=== PATIENT | male | born 1930 | race Native Hawaiian/Other Pacific Islander ===

== ENCOUNTER 2017-08-28 15:47 | Emergency (ER) | payer MEDICARE, OTHER ==
[~2017-08-28] VITALS: Ht 167.6 cm; Wt 77.3 kg
[~2017-08-28 15:47] MED LIST: ALBU8.5H8 IH; AMLO-511 PO; CALC600T2 PO; CARV6 PO; DUTA.5 PO; DUTA1CPM PO; FAMO20 PO; HYDR-2924 PO; MONT10TA21 PO; SIMV20TA6 PO; TRIA10PO3 MC
[2017-08-28] MEDS ORDERED: LEVO2.5S4 PO (16:08)
[2017-08-28] MEDS ORDERED: AZEL137S8 NASAL (16:08)
[2017-08-28] MEDS ORDERED: CYAN500 PO (16:08)
[2017-08-28] MEDS ORDERED: PANT40TA25 PO (16:08)
[2017-08-28] MEDS ORDERED: FLUT1BLS IH (16:08)
[2017-08-28] MEDS ORDERED: OMEG-135 PO (16:08)
[2017-08-28] MEDS ORDERED: NACL1 PO (16:08)
[2017-08-28] MEDS ORDERED: MULT-462 PO (16:08)
[2017-08-28] MEDS ORDERED: FERR-89 PO (16:10)
[2017-08-28] MEDS ORDERED: BECLNS NASAL (16:10)
[2017-08-28] MEDS ORDERED: LOSA50TA37 PO (16:10)
[2017-08-28 17:10] LABS: HEMATOCRIT 29.9 % (41-53); HEMOGLOBIN 10.2 g/dL (13.5-17.5); MEAN CORPUSCULAR HEMOGLOBIN 33.5 pg (26.0-34.0); MEAN CORPUSCULAR HGB CONC 34.1 G/dL (31.0-37.0); MEAN CORPUSCULAR VOLUME 98 fL (80-100); PLATELET COUNT (AUTO) 260 K/uL (150-450); RED BLOOD CELL COUNT(AUTO) 3.05 MIL/uL (4.50-5.90); RED CELL DISTRIBUTION WIDTH 15.8 % (11.5-14.5); WHITE BLOOD COUNT (AUTO) 7.2 K/uL (4.5-11.0)
[2017-08-28 17:21] LABS: CALCIUM, TOTAL 8.4 mg/dL (8.8-10.5); CREATININE 1.26 mg/dL (0.60-1.30); POTASSIUM 4.1 mmol/L (3.5-5.1)
[2017-08-28 17:26] LABS: BILIRUBIN,TOTAL 0.3 mg/dL (0.1-1.0); TOTAL PROTEIN, SERUM 5.9 g/dL (6.4-8.2)
[2017-08-28 17:59] LABS: EOSINOPHILS % (MANUAL) 3 % (1-6); LYMPHOCYTES % (MANUAL) 18 % (22-44); TOTAL CELLS COUNTED 100
[2017-08-28 21:16] VITALS: BP 172/77
== END 2017-08-28 21:38 | disposition home or self-care (01) ==
LOC: EMS 15:49
DX: M79.89 Other specified soft tissue disorders (principal); I10 Essential (primary) hypertension; J45.909 Unspecified asthma, uncomplicated; J44.9 Chronic obstructive pulmonary disease, unspecified; E78.00 Pure hypercholesterolemia, unspecified; Z91.012 Allergy to eggs; Z91.013 Allergy to seafood
CPT/HCPCS: 85007; 93005; 93970; 99285

== ENCOUNTER → 2017-10-05 | Outpatient (CLI) | payer MEDICARE, OTHER ==
[~2017-10-05] MED LIST changes: -ALBU8.5H8 IH; +AZEL137S8 NASAL; +BECLNS NASAL; -CARV6 PO; +CYAN500 PO; -DUTA.5 PO; +FERR-89 PO; +FLUT1BLS IH; +LEVO2.5S4 PO; +LOSA50TA37 PO; +MULT-462 PO; +NACL1 PO; +OMEG-135 PO; +PANT40TA25 PO; -TRIA10PO3 MC
== END | disposition home or self-care (01) ==
LOC: RADPV 09:47
PROVIDERS: ATTEND Internal Medicine Pulmonary Disease
DX: M77.32 Calcaneal spur, left foot (principal); M77.8 Other enthesopathies, not elsewhere classified

== ENCOUNTER 2018-11-14 14:44 | Emergency (ER) | payer MEDICARE, OTHER ==
[~2018-11-14] VITALS: Ht 165.1 cm; Wt 80.0 kg
[~2018-11-14 14:44] MED LIST changes: -LOSA50TA37 PO; +LOSA50TA64 PO
[2018-11-14] MEDS ORDERED: OMEP20 PO (15:05)
[2018-11-14] MEDS ORDERED: ALBU8.5H8 IH (15:05)
[2018-11-14] MEDS ORDERED: BUDE10.2 IH (15:05)
[2018-11-14] MEDS ORDERED: FLUT16H NASAL (15:05)
[2018-11-14] MEDS ORDERED: ACETAMINOPHEN 500 MG TABLET PO ONE (17:30)
[2018-11-14] MEDS ORDERED: PERTUSS(ACELL),DIPH,TET VAC/PF 0.5 ML VIAL IM ONE (17:30)
[2018-11-14 19:01] VITALS: BP 133/71
== END 2018-11-14 19:11 | disposition home or self-care (01) ==
LOC: EMS 14:45
DX: S60.031A Contusion of right middle finger without damage to nail, initial encounter (principal); J45.909 Unspecified asthma, uncomplicated; E78.00 Pure hypercholesterolemia, unspecified; Z79.899 Other long term (current) drug therapy; Z91.012 Allergy to eggs; Z91.013 Allergy to seafood; W23.0XXA Caught, crushed, jammed, or pinched between moving objects, initial encounter; Y93.89 Activity, other specified; Y92.89 Other specified places as the place of occurrence of the external cause; Y99.8 Other external cause status
CPT/HCPCS: 90471; 90715

== ENCOUNTER 2019-01-23 10:02 | Emergency (ER) | payer MEDICARE, OTHER ==
[~2019-01-23] VITALS: Ht 165.1 cm; Wt 80.0 kg
[~2019-01-23 10:02] MED LIST changes: +ALBU8.5H8 IH; -AMLO-511 PO; -BECLNS NASAL; +BUDE10.2 IH; -CYAN500 PO; -FAMO20 PO; +FLUT16H NASAL; -FLUT1BLS IH; -LEVO2.5S4 PO; -MULT-462 PO; -NACL1 PO; -OMEG-135 PO; +OMEP20 PO; -PANT40TA25 PO
[2019-01-23] MEDS ORDERED: KETOROLAC TROMETHAMINE 30 MG/ML VIAL IM ONE (11:45)
[2019-01-23 11:52] LABS: BASOPHILS % (AUTO) 0.6 % (0.0-2.0); EOSINOPHILS % (AUTO) 4.8 % (1.0-6.0); HEMATOCRIT 34.1 % (41-53); HEMOGLOBIN 11.4 g/dL (13.5-17.5); LYMPHOCYTES # (AUTO) 1.2 K/uL (1.0-4.8); LYMPHOCYTES % (AUTO) 27.6 % (22.0-44.0); MEAN CORPUSCULAR HEMOGLOBIN 34.3 pg (26.0-34.0); MEAN CORPUSCULAR HGB CONC 33.6 G/dL (31.0-37.0); MEAN CORPUSCULAR VOLUME 102 fL (80-100); MONOCYTES # (AUTO) 0.7 K/uL (0.1-1.0); MONOCYTES % (AUTO) 15.3 % (2.0-9.0); NEUTROPHILS # (AUTO) 2.3 K/uL (1.8-7.7); NEUTROPHILS % (AUTO) 51.7 % (40.0-70.0); PLATELET COUNT (AUTO) 203 K/uL (150-450); RED BLOOD CELL COUNT(AUTO) 3.33 MIL/uL (4.50-5.90); RED CELL DISTRIBUTION WIDTH 13.1 % (11.5-14.5)
[2019-01-23 12:04] LABS: CALCIUM, TOTAL 8.1 mg/dL (8.8-10.5); CREATININE 1.84 mg/dL (0.60-1.30); POTASSIUM 4.1 mmol/L (3.5-5.1)
[2019-01-23 12:14] LABS: ALBUMIN 3.3 g/dL (3.4-5.0); BILIRUBIN,TOTAL 0.4 mg/dL (0.1-1.0); TOTAL PROTEIN, SERUM 6.8 g/dL (6.4-8.2)
[2019-01-23 13:44] VITALS: BP 148/77
== END 2019-01-23 13:57 | disposition home or self-care (01) ==
LOC: EMS 10:04
DX: M75.91 Shoulder lesion, unspecified, right shoulder (principal); N19 Unspecified kidney failure; R19.7 Diarrhea, unspecified; E78.00 Pure hypercholesterolemia, unspecified; J45.909 Unspecified asthma, uncomplicated; Z90.49 Acquired absence of other specified parts of digestive tract; Z91.013 Allergy to seafood; Z91.012 Allergy to eggs; Z79.899 Other long term (current) drug therapy
CPT/HCPCS: 36415; 80053; 85025; 96372; 99283; J1885

== ENCOUNTER 2021-07-22 11:03 | Inpatient (IN) | payer OTHER ==
[~2021-07-22] VITALS: Ht 165.1 cm; Wt 77.0 kg
[~2021-07-22 11:03] MED LIST changes: -HYDR-2924 PO; +HYDR50TA36 PO; +LOSA50TA37 PO; -LOSA50TA64 PO; +MONT-35 PO; -MONT10TA21 PO; +SIMV-43 PO; -SIMV20TA6 PO
[2021-07-22] MEDS ORDERED: ASPIRIN 81 MG CHEWABLE TABLET PO ONE (12:00)
[2021-07-22] MEDS ORDERED: NITROGLYCERIN 2% (1 GM=INCH) PACKET TP ONE (12:00)
[2021-07-22] MEDS ORDERED: PANT20TA18 PO (12:09)
[2021-07-22] MEDS ORDERED: FLUT1BLS15 IH (12:09)
[2021-07-22] MEDS ORDERED: DUTA0.5C37 PO (12:09)
[2021-07-22] MEDS ORDERED: CARV12.530 PO (12:09)
[2021-07-22] MEDS ORDERED: AMLO10TA55 PO (12:09)
[2021-07-22] MEDS ORDERED: TAMS-13 PO (12:09)
[2021-07-22] MEDS ORDERED: CALC-916 PO (12:09)
[2021-07-22] MEDS ORDERED: CHOL200074 PO (12:09)
[2021-07-22] MEDS ORDERED: LEVO5TAB13 PO (12:09)
[2021-07-22] MEDS ORDERED: ASPI-1444 PO (12:09)
[2021-07-22] MEDS ORDERED: ROSU20TA73 PO (12:09)
[2021-07-22] MEDS ORDERED: DULO20CA27 PO (12:09)
[2021-07-22] MEDS ORDERED: ISOS30TA92 PO (12:09)
[2021-07-22 12:23] LABS: BASOPHILS % (AUTO) 0.5 % (0.0-2.0); EOSINOPHILS % (AUTO) 4.2 % (1.0-6.0); HEMATOCRIT 24.9 % (41-53); HEMOGLOBIN 8.5 g/dL (13.5-17.5); LYMPHOCYTES # (AUTO) 0.7 K/uL (1.0-4.8); LYMPHOCYTES % (AUTO) 9.1 % (22.0-44.0); MEAN CORPUSCULAR HEMOGLOBIN 35.5 pg (26.0-34.0); MEAN CORPUSCULAR HGB CONC 34.1 G/dL (31.0-37.0); MEAN CORPUSCULAR VOLUME 104 fL (80-100); MONOCYTES # (AUTO) 0.8 K/uL (0.1-1.0); MONOCYTES % (AUTO) 10.8 % (2.0-9.0); NEUTROPHILS # (AUTO) 5.5 K/uL (1.8-7.7); NEUTROPHILS % (AUTO) 75.4 % (40.0-70.0); PLATELET COUNT (AUTO) 235 K/uL (150-450); RED BLOOD CELL COUNT(AUTO) 2.39 MIL/uL (4.50-5.90); RED CELL DISTRIBUTION WIDTH 12.8 % (11.5-14.5)
[2021-07-22 12:31] LABS: CALCIUM, TOTAL 8.7 mg/dL (8.8-10.5); CREATININE 1.73 mg/dL (0.60-1.30); POTASSIUM 4.5 mmol/L (3.5-5.1)
[2021-07-22 12:56] LABS: COVID AG,FIA SOURCE NASOPHARYNGEAL
[2021-07-22] MEDS ORDERED: FUROSEMIDE 40 MG/4 ML VIAL IVP ONE (13:15)
[2021-07-22] MEDS ORDERED: ACETAMINOPHEN 325 MG TABLET PO PRN (14:15)
[2021-07-22] MEDS ORDERED: ONDANSETRON HCL 4 MG/2 ML VIAL IVP PRN ×2 (14:15→15:45)
[2021-07-22] MEDS ORDERED: MORPHINE SULFATE 2 MG/ML SYRINGE IVP PRN (15:45)
[2021-07-22] MEDS ORDERED: MAGNESIUM HYDROXIDE SUSPENSION 30 ML UDCUP PO PRN (15:45)
[2021-07-22] MEDS ORDERED: HYDROCODONE/ACETAMINOPHEN 5-325 MG TABLET PO PRN (15:45)
[2021-07-22] MEDS ORDERED: BISACODYL 10 MG RECTAL RECTAL SUPPOSITORY PR PRN (15:45)
[2021-07-22] MEDS: HEPARIN SODIUM,PORCINE 5,000 UNITS/ML VIAL SQ SCH ×2 (16:00→23:44)
[2021-07-22] MEDS ORDERED: HydrALAZINE HCL 50 MG TABLET PO SCH (16:00)
[2021-07-22 19:25] VITALS: BP 148/80
[2021-07-22] MEDS ORDERED: MONTELUKAST SODIUM 10 MG TABLET PO SCH (21:00)
[2021-07-22] MEDS ORDERED: ROSUVASTATIN CALCIUM 20 MG TABLET PO SCH (21:00)
[2021-07-22] MEDS ORDERED: CARVEDILOL 12.5 MG TABLET PO SCH (21:00)
[2021-07-22] MEDS: DOCUSATE SODIUM 100 MG CAPSULE PO SCH (21:48)
[2021-07-22] MEDS: ROSUVASTATIN CALCIUM 20 MG TABLET PO SCH (21:48)
[2021-07-22] MEDS: MONTELUKAST SODIUM 10 MG TABLET PO SCH (21:48)
[2021-07-22] MEDS: CARVEDILOL 12.5 MG TABLET PO SCH (21:49)
[2021-07-22] MEDS: HydrALAZINE HCL 50 MG TABLET PO SCH (21:49)
[2021-07-22 23:33] VITALS: BP 118/73
[2021-07-23 05:08] VITALS: BP 125/58
[2021-07-23 08:17] VITALS: BP 121/74
[2021-07-23] MEDS: HEPARIN SODIUM,PORCINE 5,000 UNITS/ML VIAL SQ SCH ×3 (08:43→23:05)
[2021-07-23] MEDS: PANTOPRAZOLE SODIUM 40 MG DR TABLET PO SCH (08:44)
[2021-07-23] MEDS: DOCUSATE SODIUM 100 MG CAPSULE PO SCH ×2 (08:44→20:45)
[2021-07-23] MEDS: ISOSORBIDE MONONITRATE 30 MG ER TABLET PO SCH (08:44)
[2021-07-23] MEDS: HydrALAZINE HCL 50 MG TABLET PO SCH ×3 (08:44→20:45)
[2021-07-23] MEDS: DUTASTERIDE 0.5 MG CAPSULE PO SCH (08:44)
[2021-07-23] MEDS: DULoxetine HCL 20 MG CAPSULE PO SCH (08:44)
[2021-07-23] MEDS: CARVEDILOL 12.5 MG TABLET PO SCH ×2 (08:45→20:46)
[2021-07-23] MEDS: AmLODIPine BESYLATE 10 MG TABLET PO SCH (08:45)
[2021-07-23] MEDS: TAMSULOSIN HCL 0.4 MG CAPSULE PO SCH (08:45)
[2021-07-23] MEDS: LOSARTAN POTASSIUM 50 MG TABLET PO SCH (08:45)
[2021-07-23] MEDS: FLUTICASONE PROPIONATE 50 MCG/SPRAY 16 GM NASAL SPRAY NASAL SCH (08:46)
[2021-07-23] MEDS ORDERED: ISOSORBIDE MONONITRATE 30 MG ER TABLET PO SCH (09:00)
[2021-07-23] MEDS ORDERED: DUTASTERIDE 0.5 MG CAPSULE PO SCH (09:00)
[2021-07-23] MEDS ORDERED: AmLODIPine BESYLATE 10 MG TABLET PO SCH (09:00)
[2021-07-23] MEDS ORDERED: LOSARTAN POTASSIUM 50 MG TABLET PO SCH (09:00)
[2021-07-23] MEDS ORDERED: DULoxetine HCL 20 MG CAPSULE PO SCH (09:00)
[2021-07-23] MEDS ORDERED: FLUTICASONE PROPIONATE 50 MCG/SPRAY 16 GM NASAL SPRAY NASAL SCH (09:00)
[2021-07-23] MEDS ORDERED: [UNRECOGNIZED DRUG - OTHER] IH SCH ×2 (09:00)
[2021-07-23 12:06] VITALS: BP 121/75
[2021-07-23] MEDS: MethylPREDNISolone SOD SUCC 125 MG/2 ML VIAL IVP SCH ×2 (16:11→23:05)
[2021-07-23 16:25] VITALS: BP 117/60
[2021-07-23] MEDS: ALBUTEROL SULFATE 2.5 MG/0.5 ML NEB SOLUTION NEB PRN (17:11)
[2021-07-23] MEDS ORDERED: FUROSEMIDE 20 MG/2 ML VIAL IVP ONE (18:30)
[2021-07-23 20:01] VITALS: BP 132/70
[2021-07-23] MEDS: ROSUVASTATIN CALCIUM 20 MG TABLET PO SCH (20:45)
[2021-07-23] MEDS: MONTELUKAST SODIUM 10 MG TABLET PO SCH (20:46)
[2021-07-23] MEDS: ZOLPIDEM TARTRATE 5 MG TABLET PO PRN (21:29)
[2021-07-23] MEDS: ACETAMINOPHEN 325 MG TABLET PO PRN (21:30)
[2021-07-24] VITALS (7 sets, daily range): BP systolic 114–135; BP diastolic 52–82
[2021-07-24 06:54] LABS: BASOPHILS % (AUTO) 0.1 % (0.0-2.0); EOSINOPHILS % (AUTO) 0 % (1.0-6.0); HEMATOCRIT 25.7 % (41-53); HEMOGLOBIN 8.8 g/dL (13.5-17.5); LYMPHOCYTES # (AUTO) 0.6 K/uL (1.0-4.8); LYMPHOCYTES % (AUTO) 13.6 % (22.0-44.0); MEAN CORPUSCULAR HEMOGLOBIN 35.8 pg (26.0-34.0); MEAN CORPUSCULAR HGB CONC 34.3 G/dL (31.0-37.0); MEAN CORPUSCULAR VOLUME 104 fL (80-100); MONOCYTES % (AUTO) 0.8 % (2.0-9.0); NEUTROPHILS # (AUTO) 3.7 K/uL (1.8-7.7); PLATELET COUNT (AUTO) 269 K/uL (150-450); RED BLOOD CELL COUNT(AUTO) 2.46 MIL/uL (4.50-5.90); RED CELL DISTRIBUTION WIDTH 13.3 % (11.5-14.5)
[2021-07-24 06:55] LABS: NEUTROPHILS % (AUTO) 85.5 % (40.0-70.0)
[2021-07-24 06:57] LABS: CALCIUM, TOTAL 8.6 mg/dL (8.8-10.5); CREATININE 2.15 mg/dL (0.60-1.30); POTASSIUM 4.1 mmol/L (3.5-5.1)
[2021-07-24] MEDS: HEPARIN SODIUM,PORCINE 5,000 UNITS/ML VIAL SQ SCH ×2 (09:03→16:19)
[2021-07-24] MEDS: DOCUSATE SODIUM 100 MG CAPSULE PO SCH ×2 (09:03→20:04)
[2021-07-24] MEDS: MethylPREDNISolone SOD SUCC 125 MG/2 ML VIAL IVP SCH ×2 (09:03→16:19)
[2021-07-24] MEDS: HydrALAZINE HCL 50 MG TABLET PO SCH ×3 (09:03→20:03)
[2021-07-24] MEDS: ISOSORBIDE MONONITRATE 30 MG ER TABLET PO SCH (09:04)
[2021-07-24] MEDS: CARVEDILOL 12.5 MG TABLET PO SCH ×2 (09:04→20:05)
[2021-07-24] MEDS: AmLODIPine BESYLATE 10 MG TABLET PO SCH (09:04)
[2021-07-24] MEDS: ASPIRIN 81 MG DR TABLET PO SCH (09:04)
[2021-07-24] MEDS: DUTASTERIDE 0.5 MG CAPSULE PO SCH (09:04)
[2021-07-24] MEDS: PANTOPRAZOLE SODIUM 40 MG DR TABLET PO SCH (09:04)
[2021-07-24] MEDS: TAMSULOSIN HCL 0.4 MG CAPSULE PO SCH (09:04)
[2021-07-24] MEDS: LOSARTAN POTASSIUM 50 MG TABLET PO SCH (09:04)
[2021-07-24] MEDS: FLUTICASONE PROPIONATE 50 MCG/SPRAY 16 GM NASAL SPRAY NASAL SCH (09:05)
[2021-07-24] MEDS: DULoxetine HCL 20 MG CAPSULE PO SCH (09:44)
[2021-07-24] MEDS: ACETAMINOPHEN 325 MG TABLET PO PRN (20:02)
[2021-07-24] MEDS: MONTELUKAST SODIUM 10 MG TABLET PO SCH (20:03)
[2021-07-24] MEDS: ZOLPIDEM TARTRATE 5 MG TABLET PO PRN (20:04)
[2021-07-24] MEDS: ROSUVASTATIN CALCIUM 20 MG TABLET PO SCH (20:04)
[2021-07-25] VITALS (9 sets, daily range): BP systolic 94–137; BP diastolic 56–77
[2021-07-25] MEDS: HEPARIN SODIUM,PORCINE 5,000 UNITS/ML VIAL SQ SCH ×3 (00:09→17:06)
[2021-07-25] MEDS: MethylPREDNISolone SOD SUCC 125 MG/2 ML VIAL IVP SCH ×3 (00:09→17:07)
[2021-07-25 06:54] LABS: BASOPHILS % (AUTO) 0.1 % (0.0-2.0); EOSINOPHILS % (AUTO) 0 % (1.0-6.0); HEMATOCRIT 24.2 % (41-53); HEMOGLOBIN 8.5 g/dL (13.5-17.5); LYMPHOCYTES # (AUTO) 0.6 K/uL (1.0-4.8); MEAN CORPUSCULAR HEMOGLOBIN 36.6 pg (26.0-34.0); MEAN CORPUSCULAR HGB CONC 35.2 G/dL (31.0-37.0); MEAN CORPUSCULAR VOLUME 104 fL (80-100); MONOCYTES # (AUTO) 0.3 K/uL (0.1-1.0); MONOCYTES % (AUTO) 2.7 % (2.0-9.0); NEUTROPHILS # (AUTO) 9.1 K/uL (1.8-7.7); PLATELET COUNT (AUTO) 266 K/uL (150-450); RED BLOOD CELL COUNT(AUTO) 2.33 MIL/uL (4.50-5.90); RED CELL DISTRIBUTION WIDTH 12.9 % (11.5-14.5)
[2021-07-25 07:05] LABS: CALCIUM, TOTAL 8.2 mg/dL (8.8-10.5); CREATININE 2.4 mg/dL (0.60-1.30); POTASSIUM 4.4 mmol/L (3.5-5.1)
[2021-07-25 07:10] LABS: NEUTROPHILS % (AUTO) 91.2 % (40.0-70.0)
[2021-07-25] MEDS: FLUTICASONE PROPIONATE 50 MCG/SPRAY 16 GM NASAL SPRAY NASAL SCH (08:49)
[2021-07-25] MEDS: TAMSULOSIN HCL 0.4 MG CAPSULE PO SCH (08:50)
[2021-07-25] MEDS: DOCUSATE SODIUM 100 MG CAPSULE PO SCH ×2 (08:51→21:01)
[2021-07-25] MEDS: PANTOPRAZOLE SODIUM 40 MG DR TABLET PO SCH (08:51)
[2021-07-25] MEDS: AmLODIPine BESYLATE 10 MG TABLET PO SCH (08:52)
[2021-07-25] MEDS: DULoxetine HCL 20 MG CAPSULE PO SCH (08:52)
[2021-07-25] MEDS: LOSARTAN POTASSIUM 50 MG TABLET PO SCH (08:52)
[2021-07-25] MEDS: DUTASTERIDE 0.5 MG CAPSULE PO SCH (08:52)
[2021-07-25] MEDS ORDERED: BUMETANIDE 0.25 MG/ML 4 ML VIAL IVP SCH (09:00)
[2021-07-25] MEDS: HydrALAZINE HCL 50 MG TABLET PO SCH ×3 (09:29→21:01)
[2021-07-25] MEDS: ISOSORBIDE MONONITRATE 30 MG ER TABLET PO SCH (10:26)
[2021-07-25] MEDS: CARVEDILOL 12.5 MG TABLET PO SCH ×2 (10:27→21:01)
[2021-07-25] MEDS: ALBUTEROL SULFATE 2.5 MG/0.5 ML NEB SOLUTION NEB PRN (11:14)
[2021-07-25 13:57] LABS: APPEARANCE,URINE CLEAR (CLEAR); BILIRUBIN,URINE NEGATIVE (NEGATIVE); GLUCOSE, URINE (UA) NEGATIVE (NEGATIVE); KETONES,URINE NEGATIVE (NEGATIVE); LEUKOCYTE ESTERASE ,URINE NEGATIVE (NEGATIVE); NITRATE,URINE NEGATIVE (NEGATIVE); OCCULT BLOOD,URINE NEGATIVE (NEGATIVE); PROTEIN,URINE POS 1+ (NEGATIVE); UROBILINOGEN,URINE 0.2 mg/dL (<=1.0)
[2021-07-25 13:58] LABS: CREATININE,URINE RANDOM 15.8 mg/dL (30.0-125.0); PROTEIN,URINE RANDOM 31 mg/dL (0-11.9); SODIUM,URINE RANDOM 39 mmol/l (20-110); UREA NITROGEN,URINE RANDOM 170 mg/dL (350-1000)
[2021-07-25 14:33] LABS: BACTERIA,URINE None Seen /HPF (None Seen); RBC,URINE None Seen /HPF (0-2); SQUAMOUS EPITHELIAL CELL,UR None Seen /LPF (None Seen); WBC,URINE None Seen /HPF (0-5)
[2021-07-25] MEDS: ROSUVASTATIN CALCIUM 20 MG TABLET PO SCH (21:00)
[2021-07-25] MEDS: MONTELUKAST SODIUM 10 MG TABLET PO SCH (21:01)
[2021-07-26] MEDS: MethylPREDNISolone SOD SUCC 125 MG/2 ML VIAL IVP SCH ×2 (00:47→09:12)
[2021-07-26] MEDS: HEPARIN SODIUM,PORCINE 5,000 UNITS/ML VIAL SQ SCH ×4 (00:47→23:50)
[2021-07-26 04:06] VITALS: BP 129/70
[2021-07-26 06:21] LABS: BASOPHILS % (AUTO) 0.1 % (0.0-2.0); EOSINOPHILS % (AUTO) 0 % (1.0-6.0); HEMATOCRIT 23.5 % (41-53); LYMPHOCYTES # (AUTO) 0.5 K/uL (1.0-4.8); MEAN CORPUSCULAR HEMOGLOBIN 35.7 pg (26.0-34.0); MEAN CORPUSCULAR HGB CONC 34.2 G/dL (31.0-37.0); MEAN CORPUSCULAR VOLUME 104 fL (80-100); MONOCYTES # (AUTO) 0.3 K/uL (0.1-1.0); MONOCYTES % (AUTO) 3.4 % (2.0-9.0); NEUTROPHILS # (AUTO) 8.1 K/uL (1.8-7.7); PLATELET COUNT (AUTO) 244 K/uL (150-450); RED BLOOD CELL COUNT(AUTO) 2.25 MIL/uL (4.50-5.90); RED CELL DISTRIBUTION WIDTH 12.9 % (11.5-14.5)
[2021-07-26 06:49] LABS: CREATININE 2.38 mg/dL (0.60-1.30); MAGNESIUM 1.8 mg/dL (1.80-2.40); PHOSPHORUS 4.4 mg/dL (2.5-4.9)
[2021-07-26 07:00] LABS: NEUTROPHILS % (AUTO) 90.5 % (40.0-70.0)
[2021-07-26 08:12] VITALS: BP 112/68
[2021-07-26] MEDS: AmLODIPine BESYLATE 5 MG TABLET PO SCH ×2 (09:00→09:13)
[2021-07-26] MEDS: HydrALAZINE HCL 50 MG TABLET PO SCH ×4 (09:00→20:43)
[2021-07-26] MEDS: DUTASTERIDE 0.5 MG CAPSULE PO SCH (09:10)
[2021-07-26] MEDS: DOCUSATE SODIUM 100 MG CAPSULE PO SCH ×2 (09:11→20:43)
[2021-07-26] MEDS: DULoxetine HCL 20 MG CAPSULE PO SCH (09:11)
[2021-07-26] MEDS: TAMSULOSIN HCL 0.4 MG CAPSULE PO SCH (09:12)
[2021-07-26] MEDS: PANTOPRAZOLE SODIUM 40 MG DR TABLET PO SCH (09:12)
[2021-07-26] MEDS: BUMETANIDE 0.25 MG/ML 4 ML VIAL IVP SCH (09:12)
[2021-07-26] MEDS: CARVEDILOL 12.5 MG TABLET PO SCH ×2 (09:13→20:43)
[2021-07-26] MEDS: ISOSORBIDE MONONITRATE 30 MG ER TABLET PO SCH (09:13)
[2021-07-26] MEDS: ASPIRIN 81 MG DR TABLET PO SCH (09:13)
[2021-07-26] MEDS: ALBUTEROL SULFATE 2.5 MG/0.5 ML NEB SOLUTION NEB PRN (09:44)
[2021-07-26] MEDS: FLUTICASONE PROPIONATE 50 MCG/SPRAY 16 GM NASAL SPRAY NASAL SCH (09:50)
[2021-07-26 11:30] VITALS: BP 115/68
[2021-07-26 15:39] VITALS: BP 114/55
[2021-07-26 19:53] VITALS: BP 141/68
[2021-07-26] MEDS: MONTELUKAST SODIUM 10 MG TABLET PO SCH (20:43)
[2021-07-26] MEDS: ROSUVASTATIN CALCIUM 20 MG TABLET PO SCH (20:44)
[2021-07-26 23:33] VITALS: BP 117/55
[2021-07-27 04:12] VITALS: BP 133/62
[2021-07-27 06:45] LABS: BASOPHILS % (AUTO) 0.3 % (0.0-2.0); EOSINOPHILS % (AUTO) 0 % (1.0-6.0); HEMATOCRIT 25.7 % (41-53); LYMPHOCYTES % (AUTO) 8.6 % (22.0-44.0); MEAN CORPUSCULAR HEMOGLOBIN 36.1 pg (26.0-34.0); MEAN CORPUSCULAR VOLUME 103 fL (80-100); MONOCYTES # (AUTO) 1.5 K/uL (0.1-1.0); MONOCYTES % (AUTO) 13.1 % (2.0-9.0); NEUTROPHILS # (AUTO) 8.9 K/uL (1.8-7.7); PLATELET COUNT (AUTO) 285 K/uL (150-450); RED BLOOD CELL COUNT(AUTO) 2.49 MIL/uL (4.50-5.90); RED CELL DISTRIBUTION WIDTH 12.8 % (11.5-14.5)
[2021-07-27 07:03] LABS: % IRON SATURATION 68.8 % (30-44)
[2021-07-27 07:23] LABS: ALBUMIN 2.6 g/dL (3.4-5.0); BILIRUBIN,TOTAL 0.6 mg/dL (0.1-1.0); CREATININE 2.11 mg/dL (0.60-1.30); MAGNESIUM 1.9 mg/dL (1.80-2.40); PHOSPHORUS 3.3 mg/dL (2.5-4.9); POTASSIUM 3.4 mmol/L (3.5-5.1); TOTAL PROTEIN, SERUM 5.7 g/dL (6.4-8.2)
[2021-07-27] MEDS: AmLODIPine BESYLATE 5 MG TABLET PO SCH (08:38)
[2021-07-27] MEDS: DUTASTERIDE 0.5 MG CAPSULE PO SCH (08:38)
[2021-07-27] MEDS: PANTOPRAZOLE SODIUM 40 MG DR TABLET PO SCH (08:38)
[2021-07-27] MEDS: ISOSORBIDE MONONITRATE 30 MG ER TABLET PO SCH (08:38)
[2021-07-27] MEDS: TAMSULOSIN HCL 0.4 MG CAPSULE PO SCH (08:39)
[2021-07-27] MEDS: DOCUSATE SODIUM 100 MG CAPSULE PO SCH ×2 (08:39→20:39)
[2021-07-27] MEDS: CARVEDILOL 12.5 MG TABLET PO SCH ×2 (08:40→20:39)
[2021-07-27] MEDS: HEPARIN SODIUM,PORCINE 5,000 UNITS/ML VIAL SQ SCH ×2 (08:40→17:12)
[2021-07-27] MEDS: BUMETANIDE 0.25 MG/ML 4 ML VIAL IVP SCH (08:40)
[2021-07-27] MEDS: DULoxetine HCL 20 MG CAPSULE PO SCH (08:40)
[2021-07-27] MEDS: FLUTICASONE PROPIONATE 50 MCG/SPRAY 16 GM NASAL SPRAY NASAL SCH (08:41)
[2021-07-27 08:58] VITALS: BP 138/71
[2021-07-27] MEDS: HydrALAZINE HCL 50 MG TABLET PO SCH (09:00)
[2021-07-27] MEDS ORDERED: MethylPREDNISolone SOD SUCC 125 MG/2 ML VIAL IVP SCH (09:00)
[2021-07-27] MEDS ORDERED: SODIUM CHLORIDE 0.9% 250 ML IV ONE (10:35)
[2021-07-27] MEDS: POTASSIUM CHL 10 MEQ/WATER 50 ML IV SCH ×2 (11:00→13:10)
[2021-07-27] MEDS: POTASSIUM CHLORIDE 10% 40 MEQ/30 ML LIQUID UDCUP PO SCH (11:00)
[2021-07-27] MEDS ORDERED: SODIUM CHLORIDE 0.9% 500 ML IV ONE (12:27)
[2021-07-27 12:41] VITALS: BP 135/76
[2021-07-27 16:24] VITALS: BP 117/57
[2021-07-27 19:15] VITALS: BP 147/65
[2021-07-27] MEDS: ROSUVASTATIN CALCIUM 20 MG TABLET PO SCH (20:39)
[2021-07-27] MEDS: MONTELUKAST SODIUM 10 MG TABLET PO SCH (20:39)
[2021-07-28 00:10] VITALS: BP 155/76
[2021-07-28] MEDS: HEPARIN SODIUM,PORCINE 5,000 UNITS/ML VIAL SQ SCH ×3 (00:37→16:00)
[2021-07-28 04:59] VITALS: BP 146/72
[2021-07-28 06:33] LABS: BASOPHILS % (AUTO) 0.5 % (0.0-2.0); EOSINOPHILS % (AUTO) 0.3 % (1.0-6.0); HEMATOCRIT 27.4 % (41-53); HEMOGLOBIN 9.6 g/dL (13.5-17.5); LYMPHOCYTES # (AUTO) 1.3 K/uL (1.0-4.8); LYMPHOCYTES % (AUTO) 12.4 % (22.0-44.0); MEAN CORPUSCULAR HEMOGLOBIN 36.4 pg (26.0-34.0); MEAN CORPUSCULAR HGB CONC 34.9 G/dL (31.0-37.0); MEAN CORPUSCULAR VOLUME 105 fL (80-100); MONOCYTES # (AUTO) 1.3 K/uL (0.1-1.0); MONOCYTES % (AUTO) 12.2 % (2.0-9.0); NEUTROPHILS # (AUTO) 8.1 K/uL (1.8-7.7); NEUTROPHILS % (AUTO) 74.6 % (40.0-70.0); PLATELET COUNT (AUTO) 301 K/uL (150-450); RED BLOOD CELL COUNT(AUTO) 2.63 MIL/uL (4.50-5.90); RED CELL DISTRIBUTION WIDTH 12.8 % (11.5-14.5)
[2021-07-28 06:52] LABS: ALBUMIN 2.6 g/dL (3.4-5.0); BILIRUBIN,TOTAL 0.5 mg/dL (0.1-1.0); CALCIUM, TOTAL 8.2 mg/dL (8.8-10.5); CREATININE 1.93 mg/dL (0.60-1.30); MAGNESIUM 1.8 mg/dL (1.80-2.40); PHOSPHORUS 2.8 mg/dL (2.5-4.9); POTASSIUM 3.8 mmol/L (3.5-5.1); TOTAL PROTEIN, SERUM 5.5 g/dL (6.4-8.2)
[2021-07-28 08:20] VITALS: BP 141/59
[2021-07-28] MEDS: PANTOPRAZOLE SODIUM 40 MG DR TABLET PO SCH (08:23)
[2021-07-28] MEDS: FLUTICASONE PROPIONATE 50 MCG/SPRAY 16 GM NASAL SPRAY NASAL SCH (08:23)
[2021-07-28] MEDS: TAMSULOSIN HCL 0.4 MG CAPSULE PO SCH (08:23)
[2021-07-28] MEDS: CARVEDILOL 12.5 MG TABLET PO SCH (08:24)
[2021-07-28] MEDS: AmLODIPine BESYLATE 5 MG TABLET PO SCH (08:24)
[2021-07-28] MEDS: DUTASTERIDE 0.5 MG CAPSULE PO SCH (08:24)
[2021-07-28] MEDS: DULoxetine HCL 20 MG CAPSULE PO SCH (08:24)
[2021-07-28] MEDS: ASPIRIN 81 MG DR TABLET PO SCH (08:25)
[2021-07-28] MEDS: ISOSORBIDE MONONITRATE 30 MG ER TABLET PO SCH (08:25)
[2021-07-28] MEDS: POTASSIUM CHLORIDE 10% 40 MEQ/30 ML LIQUID UDCUP PO SCH (08:25)
[2021-07-28] MEDS: BUMETANIDE 0.25 MG/ML 4 ML VIAL IVP SCH (08:26)
[2021-07-28] MEDS: DOCUSATE SODIUM 100 MG CAPSULE PO SCH (08:53)
[2021-07-28] MEDS ORDERED: PredniSONE 20 MG TABLET PO SCH (09:00)
[2021-07-28 11:43] VITALS: BP 126/64
[2021-07-28] MEDS ORDERED: PRED20 PO (15:18)
[2021-07-28] MEDS ORDERED: BUME1TAB34 PO (15:18)
[2021-07-28] MEDS ORDERED: POTA8TAB72 PO (15:18)
== END 2021-07-28 16:15 | disposition home or self-care (01) | DRG 291 ==
LOC: EMS 11:09 → 5S 15:32 → EMS 16:16
PROVIDERS: ADMIT Internal Medicine; ATTEND Internal Medicine
DX: I13.0 Hypertensive heart and chronic kidney disease with heart failure and stage 1 through stage 4 chronic kidney disease, or unspecified chronic kidney disease (principal); I50.31 Acute diastolic (congestive) heart failure; E87.1 Hypo-osmolality and hyponatremia; J44.1 Chronic obstructive pulmonary disease with (acute) exacerbation; J45.21 Mild intermittent asthma with (acute) exacerbation; N17.9 Acute kidney failure, unspecified; N18.4 Chronic kidney disease, stage 4 (severe); I24.8 Other forms of acute ischemic heart disease; E78.5 Hyperlipidemia, unspecified; E87.6 Hypokalemia; F32.9 Major depressive disorder, single episode, unspecified; E78.00 Pure hypercholesterolemia, unspecified; D63.1 Anemia in chronic kidney disease; Z20.822 Contact with and (suspected) exposure to COVID-19; I35.0 Nonrheumatic aortic (valve) stenosis; N40.0 Benign prostatic hyperplasia without lower urinary tract symptoms; Z90.49 Acquired absence of other specified parts of digestive tract; Z91.013 Allergy to seafood; Z91.012 Allergy to eggs
CPT/HCPCS: 71045; 76770; 80048; 80053; 81001; 82570; 82728; 83540; 83550; 83735; 83880; 84100; 84145; 84156; 84300; 84484; 84540; 85025; 93005; 93306; 94640; 99285; J1644; J1940; J2930; J3480; J3490; J7040; J7050; 36415-L1; 36415-TC; J7613